=== PATIENT | female | born 1985 | race Caucasian/White ===

== ENCOUNTER 2021-04-10 10:52 | Outpatient (CLI) | payer BC, SELFPAY ==
--- OUTSIDE RECORDS SUMMARY | 2021-04-10 10:54 | XMS_ITS ---
:1985 Author Care Team Providers Name Role Phone [facility] Primary Care Provider [phone] Allergies Code Code System Name Reaction Severity Status Onset Penicillins Anaphylaxis ? Active ? Medications Name Status Start Date Stop Date ? ? Abilify Completed ? 12/11/2017 1 Anucort-HC 25 mg suppository Completed ? 01/2018 aripiprazole 2 mg tablet Completed ? 018 azithromycin 250 mg tablet Completed ? 05/28 bupropion HCl SR 100 mg tablet,12 hr Active ? Not available sustained-release bupropion HCl XL 150 mg 24 hr tablet, Active ? Not available extended release bupropion HCl XL 300 mg 24 hr tablet, Active ? Not available extended release clobetasol 0.05 % topical ointment Completed ? 12/11/2017 cyclobenzaprine 10 mg tablet Completed ? 01/2018 cyclobenzaprine 5 mg tablet Completed ? 01/2018 diclofenac sodium 75 mg tablet,delayed Active ? Not available release fluconazole 150 mg tablet Active ? Not av ailable diphenoxylate-atropine 2.5 mg-0.025 mg Completed ? 12/11/2017 tablet guanfacine ER 1 mg tablet,extended Active ? Not available release 24 hr hydrocodone 7.5 mg-acetaminophen 325 mg Active ? Not available tablet indomethacin 25 mg capsule Completed ? 04/01 Intuniv ER Completed ? 05/28/2018 Lamictal Completed ? 12/11/2017 lamotrigine 100 mg tablet Completed ? 2018 lamotrigine 150 mg tablet Completed ? 2017 lamotrigine 200 mg tablet Active ? Not av ailable lamotrigine 25 mg tablet Active ? Not greg ilable lamotrigine ER 100 mg tablet,extended Completed ? 05/28/2018 release 24 hr lidocaine 5 % topical patch Active ? Not available lorazepam 0.5 mg tablet Completed ? 04/01/20 nitrofurantoin Active ? Not available monohydrate/macrocrystals 100 mg capsule meloxicam 15 mg tablet Active ? Not avail able metronidazole 0.75 % vaginal gel Active ? Not available Multi Vitamin Active ? Not available naproxen 500 mg tablet Active ? Not avail able prazosin 1 mg capsule Completed ? 12/11/2017 phenazopyridine 200 mg tablet Active ? No t available Rexulti Completed ? 01/15/2018 Rexulti 0.25 mg tablet Active ? Not avail able Rexulti 1 mg tablet Completed ? 04/01/2019 methocarbamol 500 mg tablet Active ? Not available topiramate 25 mg tablet Completed ? 01/16/20 18 Zoloft Completed ? 12/11/2017 Zoloft 100 mg tablet Active ? Not availab le Zoloft 50 mg tablet Completed ? 01/15/2018 Problems No Known Problems Procedures Date Name Performed by ? ? Other Information not avai lable Notes: Pineal gland cyst w/shunt plac ement ? Appendectomy Information not avai lable 04/14/2020 XR, Chest, 2 View In-House Results For Internal Use Onl y Do Not Delete/merge [id number] Results Lab Results Date Name Specimen Result Interpretation Description Value Range Status Address ? ? XR, Chest, 2 ? No observation ? ? ? In-House View recorded. Results : For Internal U se Only, Do N ot Delete/prieto ge ? Rapid Flu ? Rapid Flu Negative ? ? I n-House (A+B) Results: F or Internal U se Only, Do N ot Delete/prieto ge ? Rapid Strep ? Rapid Strep negative ? ? In-House Group a, Results: For Throat Internal U se Only, Do N ot Delete/prieto ge ? Urinalysis, ? Leukocytes Negative ? ? In-House Dipstick Results: For Internal U se Only, Do N ot Delete/prieto ge ? ? ? Nitrates negative ? ? In-Ho use Results: F or Internal U se Only, Do N ot Delete/prieto ge ? ? ? Urobilinogen 0.2 ? ? In- House Results: F or Internal U se Only, Do N ot Delete/prieto ge ? ? ? Protein Negative ? ? In-[place] Results: F or Internal U se Only, Do N ot Delete/prieto ge ? ? ? Ph 7.0 ? ? In-House Results: F or Internal U se Only, Do N ot Delete/prieto ge ? ? ? Blood Negative ? ? In-House Results: F or Internal U se Only, Do N ot Delete/prieto ge ? ? ? Specific 1.005 ? ? In-Hous e [place] Results: For Internal U se Only, Do N ot Delete/prieto ge ? ? ? Ketone Negative ? ? In-Hous e Results: F or Internal U se Only, Do N ot Delete/prieto ge ? ? ? Bilirubin Negative ? ? In-[place] Results: F or Internal U se Only, Do N ot Delete/prieto ge ? ? ? Glucose Negative ? ? In-[place] Results: F or Internal U se Only, Do N ot Delete/prieto ge Past Encounters 04/14/2020 Accidental Fall; Fracture of Right Rib Paul Pako Orozco MD: [address] [place] [phone], Ph. Social History Tobacco Smoking Status Never Smoker Vaccine List Notes: UTD per pt did get 17/18 flu shot Plan of Care Reminders Provider Appointments None ? ? recorded. Lab None ? ? recorded. Referral None ? ? recorded. Procedures None ? ? recorded. Surgeries None ? ? recorded. Imaging None ? ? recorded. Vitals 04/14/2020 09:05AM [facility] Height Blood Pressure 5 ft 10 in 129/86 mm[Hg] 04/01/2019 12:00PM [facility] Height Weight BMI Blood Pressure 5 ft 10 in 109.2 kg 34.5 kg/m2 114/78 mm[Hg] 05/28/2018 11:54AM [facility] Height Weight BMI Blood Pressure 5 ft 10 in 108.5 kg 34.3 kg/m2 122/77 mm[Hg] 01/15/2018 01:30PM [facility] Height Weight BMI Blood Pressure 5 ft 10 in 108.6 kg 34.4 kg/m2 111/74 mm[Hg] 12/11/2017 10:51AM [facility] Height Weight BMI Blood Pressure 5 ft 10 in 109.3 kg 34.6 kg/m2 127/74 mm[Hg] 03/07/2017 03:10PM [facility] Height Weight BMI Blood Pressure 5 ft 10 in 108.2 kg 34.2 kg/m2 108/72 mm[Hg] 02/22/2017 12:15PM [facility] Height Weight BMI Blood Pressure 5 ft 10 in 108.8 kg 34.4 kg/m2 112/77 mm[Hg] 11/23/2016 05:30PM [facility] Height Weight BMI Blood Pressure 5 ft 10 in 109.3 kg 34.6 kg/m2 102/70 mm[Hg]
[2021-04-10 12:56] LABS: HCG Quant, Pregnancy 111 mIU/mL (1-3)
[2021-04-10 21:34] LABS: Progesterone 9.2 ng/mL (See Table)
== END 2021-04-10 10:53 | disposition home or self-care (01) ==
PROVIDERS: Visit Provider Obstetrics & Gynecology
DX: O20.0 Threatened abortion (principal)
CPT/HCPCS: 36415; 84144; 84702